=== PATIENT | female | born 1950 | race Two or more races ===

== ENCOUNTER → 2024-04-19 | Outpatient (CLI) | payer MEDICAID, SELFPAY ==
--- NOTE | 2024-04-19 16:30 | XR_ITS ---
Examination: Hand, right 3 views Technique: Hand AP, oblique, lateral 3 views Date and time of exam: April 19, 2024 at 1644 hours INDICATIONS: Patient fell 3 days ago with injury to the hand, hand pain FINDINGS: Prominent osteopenia No acute fracture No dislocation IMPRESSION: No acute fracture Given the prominent osteopenia, suggest short-term follow-up hand films as clinically warranted
== END | disposition home or self-care (01) ==
LOC: SDIM 16:18
PROVIDERS: PCP Hospitalist; Referring Provider Hospitalist; Visit Provider Hospitalist
DX: M85.841 Other specified disorders of bone density and structure, right hand (principal); S69.91XA Unspecified injury of right wrist, hand and finger(s), initial encounter; W19.XXXA Unspecified fall, initial encounter
CPT/HCPCS: 73130